=== PATIENT | male | born 1985 | race Caucasian/White ===

== ENCOUNTER 2021-12-15 00:09 | Emergency (ER) | payer BC ==
[2021-12-15 00:32] VITALS: BP 128/84; PULSE 84; RESP 19; TEMP 98
--- NOTE | 2021-12-15 01:36 | XR ---
EXAMINATION TYPE: XR ankle complete RT DATE OF EXAM: 12/15/2021 COMPARISON: NONE HISTORY: Pain TECHNIQUE: 3 views FINDINGS: Ankle mortise is anatomic. There is no fracture nor dislocation. Joint spaces are normal. IMPRESSION: Negative right ankle exam.
[2021-12-15] MEDS ORDERED: ACET/COD 300 MG/30 MG STARTER PACK 6 TAB BTL PO STA (02:54)
--- NOTE | 2021-12-15 02:54 | ED ---
General Adult HPI - General Chief complaint: Extremity Injury, Lower Stated complaint: rt ankle injury Time Seen by Provider: 12/15/21 02:30 Source: patient, RN notes reviewed Mode of arrival: wheelchair - History of Present Illness Initial comments: 36-year-old male presents to the emergency department for evaluation of right ankle pain. Patient states he jumped into a pool causing forceful flexion of his foot around 6:00pm. States he was not bothered by the injury initially and had been active and ambulatory throughout the evening, but then developed increased discomfort tonight. States he is suppose to fly home to [place] on Friday and was concerned about the pain with weightbearing activity. Denies any other injuries or concerns at this time. - Related Data Previous Rx's Medication Instructions Recorded Ibuprofen [Motrin] 600 mg PO Q8HR PRN #20 tab 12/15/21 Allergies Allergy/AdvReac Type Severity Reaction Status Date / Time No Known Allergies Allergy Verified 12/15/21 00:32 Review of Systems ROS Statement: Those systems with pertinent positive or pertinent negative responses have been documented in the HPI. ROS Other: All systems not noted in ROS Statement are negative. Past Medical History Past Medical History: No Reported History History of Any Multi-Drug Resistant Organisms: None Reported Past Surgical History: No Surgical Hx Reported Past Psychological History: No Psychological Hx Reported Smoking Status: Never smoker Past Alcohol Use History: None Reported Past Drug Use History: None Reported General Exam Limitations: no limitations (Well-developed, well-nourished male in no acute distress. Initial temperature 98.0, pulse 84, respirations 18, blood pressure 128/84, pulse ox 98% on room air.) General appearance: alert, in no apparent distress Neck exam: Present: normal inspection, full ROM. Absent: tenderness, meningismus, lymphadenopathy Respiratory exam: Present: normal lung sounds bilaterally. Absent: respiratory distress, wheezes, rales, rhonchi, stridor Cardiovascular Exam: Present: regular rate, normal rhythm, normal heart sounds. Absent: systolic murmur, diastolic murmur, rubs, gallop, clicks GI/Abdominal exam: Present: soft, normal bowel sounds. Absent: distended, tenderness, guarding, rebound, rigid Right Upper Leg exam: Present: normal inspection, full ROM Knee exam: Present: normal inspection, full ROM. Absent: tenderness, swelling Lower Leg exam: Present: normal inspection, full ROM. Absent: tenderness, swelling Ankle exam: Present: tenderness (tenderness upon palpation over the right later al malleolus), swelling (mild swelling extending from the right lateral malleolus to the dorsal surface). Absent: full ROM (decreased flexion and rotational movement), ecchymosis, deformity Foot/Toe exam: Present: normal inspection, full ROM Neurovascular tendon exam: Present: no vascular compromise. Absent: pulse deficit, abnormal cap refill Gait: observed and limited by pain Neurological exam: Present: alert, oriented X3 Psychiatric exam: Present: normal affect, normal mood Skin exam: Present: warm, dry, intact, normal color. Absent: rash Course Vital Signs 12/15/21 00:29 Temperature 98 F Pulse Rate 84 Respiratory 19 Rate Blood Pressure 128/84 O2 Sat by Pulse 98 Oximetry Procedures - Orthopedic Splinting/Casting Injury #1 Side: right Lower Extremity Injury Location: ankle Lower Extremity Immobilizer: AirCast, Hal wrap Other Orthopedic Equipment: crutches Additional Comments: Instructed on appropriate use of crutches. Return demonstration of adequate. Medical Decision Making - Medical Decision Making This is a 36-year-old male with no significant past medical history who presents to the emergency Department with complaints of right ankle pain. Upon exam, patient is well-appearing with minimal discomfort at rest. He has mild swelling of the right lateral malleolus and discomfort extending to the dorsal surface of the foot. Pain worsens with flexion of the foot and weight bearing. Distal sensation intact. +2 pedal and post-tibial pulses. Xray was obtained showing no acute findings. Hal wrap and aircast placed. Given motrin with some improvement. Crutches prescribed, patient able to use without difficulty. Encouraged follow up with PCP or orthopedist upon return home to [place] this week. Return parameters discussed in detail. patient verbalizes understanding and agrees with this plan. Attending: Beverly. - Radiology Data Radiology results: report reviewed, image reviewed X-ray of the right ankle was obtained. Report was reviewed in its entirety. Impression per Dr. Evans is negative right ankle exam. Disposition Clinical Impression: Right ankle sprain Disposition: HOME SELF-CARE Condition: Stable Instructions (If sedation given, give patient instructions): Ankle Sprain (ED) Additional Instructions: Keep ankle stirrup splint in place while doing any weight bearing activity. Elevate affected extremity while at rest. May apply ice for no more than 20 minutes per hour. Take Motrin if needed for discomfort. Follow-up with your PCP when you return home. Return to the emergency department with any new, worsening, or concerning symptoms. Prescriptions: Ibuprofen [Motrin] 600 mg PO Q8HR PRN #20 tab PRN Reason: Pain Is patient prescribed a controlled substance at d/c from ED?: No Referrals: None,Stated [Primary Care Provider] - 1-2 days
[2021-12-15] MEDS ORDERED: IBUPROFEN 600 MG TAB PO STA (02:55)
== END 2021-12-15 03:44 | disposition home or self-care (01) ==
LOC: EC 00:09
DX: S93.401A Sprain of unspecified ligament of right ankle, initial encounter (principal); W16.522A Jumping or diving into swimming pool striking bottom causing other injury, initial encounter
CPT/HCPCS: 99283